=== PATIENT | male | born 1995 | race African-American/Black ===

== ENCOUNTER 2018-03-02 05:39 | Emergency (ER) | payer OTHER ==
[~2018-03-02] VITALS: Ht 185.4 cm; Wt 81.0 kg
[2018-03-02] MEDS ORDERED: PLEASE ENTER ALLERGIES MC SCH (09:30)
[2018-03-02] MEDS ORDERED: SODIUM CHLORIDE 0.9% 1,000ML IVBOLUS ONE (09:30)
[2018-03-02 09:39] LABS: BASOPHILS # (AUTO) 0.01 x10^3/uL (0-0.1); BASOPHILS % (AUTO) 0 % (0-1); EOSINOPHILS # (AUTO) 0.01 x10^3/uL (0-0.4); EOSINOPHILS % (AUTO) 0 % (1-7); LYMPHOCYTES # (AUTO) 0.98 x10^3/uL (1-3.4); LYMPHOCYTES % (AUTO) 15 % (22-44); MD NO; MEAN CORPUSCULAR HEMOGLOBIN 30.2 pg (27.5-34.5); MEAN CORPUSCULAR HGB CONC 33.7 g/dL (33.2-36.2); MEAN CORPUSCULAR VOLUME 89.7 fL (81-97); MEAN PLATELET VOLUME 9.4 fL (7.4-10.4); MONOCYTES % (AUTO) 5 % (2-9); NEUTROPHILS % (AUTO) 81 % (42-75); PLATELET COUNT 219 x10^3/uL (130-400); RED BLOOD COUNT 5.23 x10^6/uL (4.38-5.82); RED CELL DISTRIBUTION WIDTH 15.1 % (9.4-14.8)
[2018-03-02 09:52] LABS: ALBUMIN 3.3 g/dL (3.4-5.0); ANION GAP 5 mmol/L (5-15); CALCIUM 7.8 mg/dL (8.5-10.1); CHLORIDE 111 mmol/L (98-107)
[2018-03-02 09:56] LABS: TROPONIN I < 0.015 ng/mL (0.000-0.045)
[2018-03-02 10:42] VITALS: BP 123/80
[2018-03-02 11:22] LABS: INTERNATIONAL NORMALIZED RATIO 1.22 (0.93-1.1); PROTHROMBIN TIME 12.5 Seconds (9.6-11.5)
== END 2018-03-02 11:16 | disposition home or self-care (01) ==
LOC: ED 08:56
DX: F10.120 Alcohol abuse with intoxication, uncomplicated (principal); G93.49 Other encephalopathy
CPT/HCPCS: 36415; 80048; 82040; 83880; 84484; 85025; 85610; 93005; 99285; J7030